=== PATIENT | male | born 1945 | race Caucasian/White ===

== ENCOUNTER 2021-08-19 19:07 | Emergency (ER) | payer MEDICARE, BC ==
[2021-08-19] MEDS ORDERED: Ciprofloxacin 500 MG Tab ONE (19:50)
--- NOTE | 2021-08-19 19:51 | EDM.PDOC ---
ED HPI GENERAL MEDICAL PROBLEM - General Chief Complaint: Genitourinary Problem Stated Complaint: UTI Time Seen by Provider: 08/19/21 19:30 Source of Information: Reports: Patient, RN Notes Reviewed History Limitations: Reports: No Limitations - History of Present Illness INITIAL COMMENTS - FREE TEXT/NARRATIVE: This patient presents to the emergency department for evaluation of symptoms consistent with a urinary tract infection. Patient states he has had several urinary tract infections in the recent past and was treated for 1 in July around the . He was on Cipro and Augmentin for that one. He states that it went away completely and he was feeling better until the last couple of days when he started to have urgency, frequency, dysuria, and a sensation that he is unable to completely empty his bladder. He denies any testicular pain or swelling. He denies any penile discharge. He has not had a fever with this and denies CVA tenderness. - Related Data Allergies Allergy/AdvReac Type Severity Reaction Status Date / Time Penicillins Allergy Lethargy Verified 11/07/14 11:16 Home Meds: Home Meds Aspirin [Adult Low Dose Aspirin EC] 81 mg PO DAILY 08/15/13 [History] Celecoxib [CeleBREX] 50 mg PO DAILY 08/15/13 [History] Furosemide [Lasix] 20 mg PO DAILY 08/15/13 [History] Glucosamine [Glucosamine Sulfate] 500 mg PO DAILY 08/15/13 [History] Metoprolol Succinate [Toprol XL] 50 mg PO DAILY 08/15/13 [History] metFORMIN [metFORMIN XR] 1,000 mg PO BID 08/15/13 [History] Azithromycin [Z-Alessio] 250 mg PO ASDIRECTED #6 tablet 11/07/14 [Rx] ED ROS GENERAL - Review of Systems Review Of Systems: Comprehensive ROS is negative, except as noted in HPI. ED EXAM, RENAL/ - Physical Exam Exam: See Below Exam Limited By: No Limitations General Appearance: Alert, No Apparent Distress Eye Exam: Bilateral Eye: EOMI, PERRL Ears: Normal External Exam Head: Atraumatic, Normocephalic Neck: Normal Inspection, Full Range of Motion Respiratory/Chest: No Respiratory Distress, No Accessory Muscle Use Back Exam: No: CVA Tenderness (R), CVA Tenderness (L) Psychiatric: Normal Affect, Normal Mood Skin Exam: Warm, Dry, Intact Course - Orders/Labs/Meds Labs: Laboratory Tests 08/19/21 Range/Units 19:16 Urine Color Yellow Urine Appearance Clear (CLEAR) Urine pH 5.5 (5.0-8.0) Ur Specific [place] 1.010 (1.003-1.030) Urine Protein Negative (NEGATIVE) mg/dL Urine Glucose (UA) Negative (NEGATIVE) mg/dL Urine Ketones Negative (NEGATIVE) mg/dL Urine Occult Blood Negative (NEGATIVE) Urine Nitrite Negative (NEGATIVE) Urine Bilirubin Negative (NEGATIVE) Urine Urobilinogen 0.2 (0.2-1.0) E.U./dL Ur Leukocyte Esterase Negative (NEGATIVE) - Re-Assessments/Exams Free Text/Narrative Re-Assessment/Exam: This patient presents to the emergency department for evaluation of urinary symptoms. History and clinical findings are most consistent with a prostatitis. There are no systemic symptoms present to suggest he has a pyelonephritis. There is no clinical evidence of a perinephrotic abscess, ureteral lithiasis, appendicitis, colitis, diverticulitis, or any intra-abdominal catastrophe. Given his well appearance I believe the risk of imminent deterioration is low and outpatient management is indicated for this. He will be treated at home with Cipro. He was given a partial prescription for this directly in the ER and will orange picker the rest of it on Saturday in the pharmacy. He was instructed to return to the emergency department or his primary care provider if he had increasing pain, vomiting, fever, or any inability to to tolerate oral medications. He was also encouraged to increase fluids. The patient was stable at the time of discharge. 08/19/21 19:54 Departure - Departure Time of Disposition: 20:00 Disposition: Home, Self-Care 01 Condition: Good Clinical Impression: Prostatitis - Discharge Information *PRESCRIPTION DRUG MONITORING PROGRAM REVIEWED*: Not Applicable *COPY OF PRESCRIPTION DRUG MONITORING REPORT IN PATIENT MONICA: Not Applicable Forms: ED Department Discharge
[2021-08-20 02:42] VITALS: BP 147/71; PULSE 77
== END 2021-08-19 19:57 | disposition home or self-care (01) ==
LOC: LB.ED 19:07
DX: N41.9 Inflammatory disease of prostate, unspecified (principal); Z88.0 Allergy status to penicillin; Z79.82 Long term (current) use of aspirin; Z79.84 Long term (current) use of oral hypoglycemic drugs
CPT/HCPCS: 81003; 99283; A9270

== ENCOUNTER 2024-02-11 12:29 | Emergency (ER) | payer MEDICARE, BC ==
[2024-02-11 12:49] VITALS: BP 130/63; PULSE 91
== END 2024-02-11 13:30 | disposition home or self-care (01) ==
LOC: LB.ED 12:29
DX: L03.114 Cellulitis of left upper limb (principal); L55.9 Sunburn, unspecified; I10 Essential (primary) hypertension; E78.00 Pure hypercholesterolemia, unspecified; Z87.891 Personal history of nicotine dependence; Z95.0 Presence of cardiac pacemaker; Z95.5 Presence of coronary angioplasty implant and graft; Z79.52 Long term (current) use of systemic steroids; Z79.899 Other long term (current) drug therapy; Z79.82 Long term (current) use of aspirin; Z88.0 Allergy status to penicillin
CPT/HCPCS: 99283